=== PATIENT | female | born 1995 | race Hispanic/Latino ===

== ENCOUNTER 2020-09-14 08:51 | Inpatient (IN) | payer MEDICAID ==
[2020-09-14] MEDS ORDERED: ONDANSETRON 4 MG/2 ML INJ IV PRN (10:51)
[2020-09-14] MEDS ORDERED: LOPERAMIDE 2 MG CAP PO PRN (10:51)
[2020-09-14] MEDS ORDERED: ePHEDrine SULFATE 50 MG/1 ML INJ IV PRN (10:51)
[2020-09-14] MEDS ORDERED: NALOXONE 0.4 MG/1 ML INJ IV PRN (10:51)
[2020-09-14] MEDS ORDERED: OXYTOCIN 10 UNIT/1 ML INJ IM PRN (10:51)
[2020-09-14] MEDS ORDERED: MINERAL OIL 30 ML ORAL LIQD PO PRN (10:51)
[2020-09-14] MEDS ORDERED: fentaNYL 100 MCG/2 ML INJ IV PRN (10:51)
[2020-09-14] MEDS ORDERED: BUTORPHANOL 2 MG/1 ML INJ IV PRN ×2 (10:51)
[2020-09-14] MEDS ORDERED: TERBUTALINE 1 MG/1 ML INJ SUB-Q PRN (10:51)
[2020-09-14] MEDS ORDERED: miSOPROStol 200 MCG TAB PR PRN (10:51)
[2020-09-14] MEDS ORDERED: METHYLERGONOVINE MALEATE 0.2 MG/ML VIAL IM PRN (10:51)
[2020-09-14] MEDS ORDERED: LIDOCAINE (2%) 20 MG/1 ML VIAL 20 ML MDV INFILTRATI ONE (10:51)
[2020-09-14] MEDS ORDERED: CARBOPROST TROMETHAMINE 250 MCG/1 ML INJ IM PRN (10:51)
[2020-09-14] MEDS ORDERED: OXYTOCIN DRIP 30 UNITS/500 ML BAG IV SCH ×2 (11:00)
[2020-09-14 11:30] LABS: Hematocrit 36.7 % (30.3-42.9); Hemoglobin 12.3 gm/dl (10.1-14.3); Mean Corpuscular HGB Conc 33 % (30-34); Mean Corpuscular Volume 75 fl (79-97); Platelet Count 196 K/mm3 (140-440); Red Blood Count 4.88 M/mm3 (3.65-5.03)
[2020-09-14] MEDS: LACTATED RINGERS 1,000 ML IV SCH ×2 (11:40→20:34)
[2020-09-14 11:47] LABS: Alanine Aminotransferase 11 units/L (7-56); Uric Acid 3.9 mg/dL (3.5-7.6)
[2020-09-14 11:59] LABS: Bilirubin,Urine NEG (Negative); Blood,Urine NEG (Negative); Color,Urine Straw (Yellow); Protein,Urine <15 mg/dL mg/dL (Negative); Urobilinogen,Urine < 2.0 mg/dL (<2.0)
--- NOTE | 2020-09-14 15:32 | History and Physical Report ---
History of Present Illness Date of examination: 09/14/20 Date of admission: 09/14/20 08:52 Chief complaint: scheduled induction of labor History of present illness: Pt is a 24 year old female COLT 09/07/20 at 41w0d presents for scheduled induction of labor secondary to postdates. She reports irregular contractions and denies vaginal bleeding and leakage of fluid. She has had care at [facility] complicated by alpha thalassemia carrier, medium chain acyl coa dehydrogenase deficiency, h/o 36 wk PPROM and delivery, Rubella Equivocal, genital herpes without lesion or prodrome. She is GBS negative. Past History Past Medical History: no pertinent history Past Surgical History: no surgical history [employer] DIRECTOR History: herpes (no lesion or prodrome ) Family/Genetic History: none Social history: - Obstetrical History Expected Date of Delivery: 09/07/20 Actual Gestation: 41 Week(s) 0 Day(s) : 4 Para: 2 Hx # Term Pregnancies: 2 Number of Pregnancies: 0 Spontaneous Abortions: 1 Induced : 0 Number of Living Children: 2 Medications and Allergies Allergies Allergy/AdvReac Type Severity Reaction Status Date / Time No Known Allergies Allergy Verified 09/14/20 11:08 Home Medications Medication Instructions Recorded Confirmed Last Taken Type Pnv,Calcium 72/Iron,Carb/Folic 1 tab PO DAILY 09/14/20 09/14/20 09/13/20 11:00 History [ Plus Iron Tablet] Active Meds: Active Medications Acetaminophen (Acetaminophen 325 Mg Tab) 650 mg PO Q4H PRN PRN Reason: Pain, Mild (1-3) Butorphanol Tartrate (Butorphanol 2 Mg/1 Ml Inj) 1 mg IV Q2H PRN PRN Reason: Pain, Moderate(4-6) LABOR PAIN Butorphanol Tartrate (Butorphanol 2 Mg/1 Ml Inj) 2 mg IV Q2H PRN PRN Reason: Pain , Severe (7-10) Carboprost Tromethamine (Carboprost Tromethamine 250 Mcg/1 Ml Inj) 250 mcg IM ONCE PRN PRN Reason: Uterine Bleeding Ephedrine Sulfate (Ephedrine Sulfate 50 Mg/1 Ml Inj) 10 mg IV Q2M PRN PRN Reason: Hypotension Fentanyl (Fentanyl 100 Mcg/2 Ml Inj) 100 mcg IV Q2H PRN PRN Reason: Pain,Severe (7-10) LABOR PAIN Oxytocin/Sodium Chloride (Pitocin/Ns 30 Unit/500ml) 30 units in 500 mls @ 2 mls/hr IV TITR JEANNETTE; Protocol Last Titration: 09/14/20 13:02 Dose: 6 ml/hr, 6 mls/hr Documented by: Lactated Ringer's (Lactated Ringers) 1,000 mls @ 125 mls/hr IV DIRECT JEANNETTE Last Admin: 09/14/20 11:40 Dose: 125 mls/hr Documented by: Oxytocin/Sodium Chloride (Pitocin/Ns 30 Unit/500ml) 30 units in 500 mls @ 40 mls/hr IV TITR JEANNETTE; Protocol Loperamide HCl (Loperamide 2 Mg Cap) 2 mg PO ONCE PRN PRN Reason: give with Hemabate Methylergonovine Maleate (Methylergonovine Maleate 0.2 Mg/Ml Vial) 0.2 mg IM ONCE PRN PRN Reason: Uterine Bleeding Mineral Oil (Mineral Oil 30 Ml Oral Liqd) 30 ml PO QHS PRN PRN Reason: Constipation Misoprostol (Misoprostol 200 Mcg Tab) 800 mcg DC ONCE PRN PRN Reason: Uterine Bleeding Naloxone HCl (Naloxone 0.4 Mg/1 Ml Inj) 0.1 mg IV Q2MIN PRN PRN Reason: Res Rate </= 8 or 02 SAT < 92% Ondansetron HCl (Ondansetron 4 Mg/2 Ml Inj) 4 mg IV Q8H PRN PRN Reason: Nausea And Vomiting Oxytocin (Oxytocin 10 Unit/1 Ml Inj) 10 unit IM ONCE PRN PRN Reason: Uterine Bleeding Terbutaline Sulfate (Terbutaline 1 Mg/1 Ml Inj) 0.25 mg SUB-Q ONCE PRN PRN Reason: Hyperstimulation/Hypertonicity Review of Systems All systems: negative - Vital Signs Vital signs: Vital Signs Pulse Pulse Ox 80 98 09/14/20 08:53 09/14/20 08:53 Temp Pulse Resp BP Pulse Ox 98.4 F 81 16 140/85 98 09/14/20 09:30 09/14/20 15:24 09/14/20 09:30 09/14/20 15:09 09/14/20 15:24 - Physical Exam Breasts: Positive: deferred Abdomen: Positive: soft (gravid ) Uterus: Positive: enlarged (gravid ) Extremities: Positive: normal - Obstetrical FHR: auscultation normal Uterine Contraction Monitor Mode: External Cervical Dilatation: 2 (per RN ) Uterine Contraction Pattern: Regular Uterine Tone Measurement Phase: Resting Uterine Contraction Intensity: Mild Results Result Diagrams: 09/14/20 11:05 09/14/20 11:05 Abnormal lab results 09/14/20 09/14/20 Range/Units 11:05 11:05 MCV 75 L (79-97) fl MCH 25 L (28-32) pg Creatinine 0.4 L (0.6-1.2) mg/dL Lactate Dehydrogenase 193 H (91-180) units/L All other labs normal. Assessment and Plan A: IUP at 41w0d Gestational Hypertension Alpha thalassemia carrier Medium chain acyl coa dehydrogenase deficiency carrier Rubella Equivocal Genital herpes without lesion or prodrome GBS negative. P: Admit to labor and delivery Routine intrapartum care Closely monitor maternal and status
--- NOTE | 2020-09-15 03:22 | Event Note ---
Date: 09/15/20 Pt complaining of feeling some contractions. AROM for clear fluid. . Pt does not want epidural.
[2020-09-15] MEDS: LACTATED RINGERS 1,000 ML IV SCH (05:00)
[2020-09-15] MEDS ORDERED: LIDOCAINE (2%) 20 MG/1 ML VIAL 20 ML MDV INFILTRATI ONE (07:10)
--- NOTE | 2020-09-15 07:40 | Procedure Note ---
OB Delivery Note - Delivery Date of Delivery: 09/15/20 Surgeon: JERARDO MARSH Estimated blood loss: 200cc - Vaginal Delivery presentation: vertex Delivery position: OA Intrapartum events: shoulder dystocia Delivery induction: oxytocin Delivery monitor: external FHT, external uterine Route of delivery: Delivery placenta: spontaneous Delivery cord: 3 umbilical vessels Episiotomy: none Delivery laceration: none Anesthesia: none Delivery comments: Called to director engineering for delivery since provider is in [place]. Spontaneous vaginal delivery at 07:14 of liveborn male weighing 8 lb. 4 oz. over intact perineum with apgars of 8/9. was atraumatic; no nuchal cord. Right anterior shoulder dystocia resolved with McRobert's maneuver and delivery of posterior arm; head to body interval 30 seconds. Baby was vigorous at and was placed skin to skin with mom immediately after delivery. Baby dried with warm towels and suctioned with bulb syringe. Spontaneous cry and respirations. Delayed cord clamping. 3 vessel cord double clamped and cut. Spontaneous delivery of intact placenta and membranes. Pitocin to IV fluids after delivery of placenta. EBL 200 cc. Fundus firm and midline. No lacerations noted. Vaginal sweep negative. Sponge count correct. Mother and baby stable.
[2020-09-15] MEDS: ACETAMINOPHEN 325 MG TAB PO PRN ×2 (12:21→17:00)
[2020-09-16] MEDS: IBUPROFEN 600 MG TAB PO PRN ×2 (01:55→11:53)
[2020-09-16 08:17] LABS: Hematocrit 30.7 % (30.3-42.9); Hemoglobin 10.3 gm/dl (10.1-14.3)
[2020-09-16 16:58] VITALS: BP 141/96
--- NOTE | 2020-09-16 17:04 | Discharge Summary ---
Providers - Providers Date of Admission: 09/14/20 08:52 Date of discharge: 09/16/20 Attending physician: SARI MORALES Primary care physician: SARI MORALES Hospitalization Reason for admission: induction of labor Delivery: Episiotomy: none Laceration: none complications: none Discharge diagnosis: IUP at term delivered baby: female Hospital course: unremarkable Condition at discharge: Good Disposition: [id number]-01 TO HOME OR SELFCARE Plan - Discharge Medications Prescriptions: Ibuprofen [Motrin 600 MG tab] 600 mg PO Q6H PRN #40 tablet PRN Reason: Pain, Mild (1-3) - Provider Discharge Summary Activity: routine, no sex for 6 weeks, no heavy lifting 4 weeks, no strenuous exercise Diet: routine Instructions: routine Additional instructions: [] Smoking cessation referral if applicable(refer to patient education folder for contact #) [] Refer to [facility]'s [facility] Booklet Call your doctor immediately for: * Fever > 100.5 * Heavy vaginal bleeding ( >1 pad per hour) * Severe persistent headache * Shortness of breath * Reddened, hot, painful area to leg or breast * Drainage or odor from incision. * Keep incision clean and dry at all times and follow doctor's instructions regarding bathing/showering - Follow up plan Follow up: SARI MORALES MD [Primary Care Provider] - 3 Days Forms: [facility] Discharge Summary
== END 2020-09-16 17:40 | disposition home or self-care (01) | DRG 774 ==
LOC: TRG 08:51 → LD 08:52 → TRG 10:51 → OB 09-15 09:24
PROVIDERS: ADMIT Obstetrics & Gynecology; ATTEND Obstetrics & Gynecology
PROC: 10E0XZZ Delivery of Products of Conception, External Approach (ICD-10-PCS; principal; 2020-09-15)
PROC: 3E033VJ Introduction of Other Hormone into Peripheral Vein, Percutaneous Approach (ICD-10-PCS; 2020-09-15)
PROC: 10907ZC Drainage of Amniotic Fluid, Therapeutic from Products of Conception, Via Natural or Artificial Opening (ICD-10-PCS; 2020-09-15)
DX: O48.0 Post-term pregnancy (principal); O98.32 Other infections with a predominantly sexual mode of transmission complicating childbirth; O66.0 Obstructed labor due to shoulder dystocia; Z20.822 Contact with and (suspected) exposure to COVID-19; O13.4 Gestational [pregnancy-induced] hypertension without significant proteinuria, complicating childbirth; A60.00 Herpesviral infection of urogenital system, unspecified; D56.0 Alpha thalassemia; O75.89 Other specified complications of labor and delivery; Z37.0 Single live birth; Z68.41 Body mass index [BMI] 40.0-44.9, adult; Z3A.41 41 weeks gestation of pregnancy
CPT/HCPCS: 36415; 81001; 82565; 83615; 84450; 84460; 84550; 85014; 85018; 85027; 86592; 86850; 86900; 86901; 96360; 96361; G0378; J2590; J7120; U0003